=== PATIENT | male | born 1985 | race Caucasian/White ===

== ENCOUNTER 2022-01-29 09:18 | Emergency (ER) | payer MEDICAID, SELFPAY ==
[2022-01-29] VITALS (34 sets, daily range): BP systolic 115–138; BP diastolic 71–100; PULSE 50–92; RESP 8–29; TEMP 36.5; O2SAT 95–99
--- NOTE | 2022-01-29 09:30 | RT.EKG_ITS ---
APPROVED REPORT Exam: Resting ECG Reason for Exam: dizzyness Patient Location: E HR:68 bpm ECG Measurements Heart Rate 68 AXIS MN 146 P 7 QRSd 73 QRS 21 QT 368 T 33 QTc 393 Conclusion Unknown rhythm, irregular rate...V-rate 51- 83, variation>10%
[2022-01-29] MEDS: Normal Saline 1,000 ML 1000 ML IV (10:41)
[2022-01-29 10:46] LABS: Abs Immature Grans 0.01 10^3/uL (0.0-0.06); Absolute Basophil Count 0.04 10^3/uL (0.0-0.2); Absolute Eosinophil Count 0.01 10^3/uL (0.0-0.7); Absolute Lymphocyte Count 1.31 10^3/uL (1.2-3.4); Absolute Monocyte Count 0.97 10^3/uL (0.1-0.8); Basophils % 0.6; Eosinophils % 0.1; HCT 44.1 % (40.0-50.0); HGB 14.7 g/dL (13.5-17.5); Immature Grans % 0.1; Lymphocytes % 18.3; MCH 29.9 pg (27.0-33.0); MCHC 33.3 % (32.0-36.0); MCV 90 fL (80-95); MPV 10.1 fL (8.0-11.0); Monocytes % 13.6; Neutrophils % 67.3; Platelet Count 255 10^3/uL (130-400); RBC 4.92 10^6/uL (4.36-5.78); RDW 12.6 % (11.8-14.1); RDW-SD 41.4 fL; WBC 7.14 10^3/uL (4.4-10.8)
[2022-01-29 11:17] LABS: ALT 30 U/L (16-63); AST 35 U/L (15-37); Albumin 3.7 g/dL (3.4-5.0); Alkaline Phosphatase 130 U/L (46-116); Anion Gap 6.1 mmol/L (3-11); BUN 12 mg/dL (7-18); Bilirubin, Total 0.2 mg/dL (0.2-1.0); CO2 28.9 mmol/L (21.0-32.0); CREATININE 1.1 mg/dL (0.70-1.30); Calcium 8.8 mg/dL (8.5-10.1); Chloride 101 mmol/L (98-107); Estimated GFR 88.12 (mL/min/1.73m2); Glucose 92 mg/dL (74-106); Magnesium 1.9 mg/dL (1.8-2.4); Potassium 3.9 mmol/L (3.5-5.1); Sodium 136 mmol/L (136-145); TSH (W/Ref FT4) 0.79 uIU/mL (0.36-3.74); Total Protein 7.6 g/dL (6.4-8.2); Troponin I < 50 ng/L (<or=60)
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
--- NOTE | 2022-01-29 12:59 | NUR.NOTE ---
Nursing Note:REPEAT LABS DRAWN, PT DENIES PAIN OR COMPLAINTS AT THIS TIME, CONT. TO MONITOR.
--- NOTE | 2022-01-29 13:14 | NUR.NOTE ---
Nursing Note: RT UNABLE TO DO HOLTER MONITOR AT THIS TIME, PT AWARE OF NEED TO RETURN FOR HOLTER MONITOR OUTPT, PROVIDER AWARE.
[2022-01-29 13:17] LABS: Troponin I < 50 ng/L (<or=60)
--- NOTE | 2022-01-29 13:21 | NUR.NOTE ---
Nursing Note: pT DISCHARGED, WILL RETURN WHEN NOTIFIED OF AVAILABILITY FOR HOLTER MONITOR APPLICATION OUTPT, PROVIDER AWARE.
[2022-01-31 21:16] LABS: Anaplasma phagocytophilum Negative (Negative); B. miyamotoi PCR Negative (Negative); Babesia divergens/MO-1 Negative (Negative); Babesia duncani Negative (Negative); Babesia microti Negative (Negative); Ehrlichia chaffeensis Negative (Negative); Ehrlichia ewingii/canis Negative (Negative); Ehrlichia muris eauclairensis Negative (Negative)
[2022-02-01 11:29] LABS: Lyme Ab w Rflx to Lyme Confirm Negative (Negative)
--- NOTE | 2022-02-01 11:30 | CMACTNOTE_ITS ---
- If Service Date Differs Date of service: 01/29/22 Time of Service: 16:00 Care Management Activity Note Abdoul presents in the ED for syncope and episodic lightheadedness. CM meets with Abdoul to inquire if he has a PCP as he is going home with a holter monitor and will require close follow-up. Abdoul reports he did have a doctor in [place] but she left the practice and he has not seen anyone else and does not feel the need to have a doctor at this time. LORELEI explains to him that he will need to be followed on an outpatient basis as he is going home with a holter monitor. Abdoul acknowledges his understanding and instructs CM to refer him to a PCP anywhere. With his verbal permission, LORELEI telephones [facility] in [place]. They confirm Abdoul is a former patient but state he has not been seen in over 2 years and is no longer active. They further state they have a 6 month waitlist and would not be able to schedule an appointment for Abdoul for several months. LORELEI then coordinates a referral to Dr. Gandhi of [facility], t-doc online marketing strategist, to assist Abdoul in obtaining a follow up appointment. He has Medicaid for insurance.
== END 2022-01-29 13:20 | disposition home or self-care (01) ==
PROVIDERS: Emergency Provider Student in an Organized Health Care Education/Training Program
DX: R55 Syncope and collapse (principal); R42 Dizziness and giddiness; I49.8 Other specified cardiac arrhythmias; F17.210 Nicotine dependence, cigarettes, uncomplicated
CPT/HCPCS: 36415; 80053; 87798; 93005; 96360; 99284; 83735; 84443; 84484; 85025; 86618; 93010; 93225

== ENCOUNTER 2022-01-31 13:42 | Observation (INO) | payer MEDICAID, SELFPAY ==
[2022-01-31] VITALS (16 sets, daily range): BP systolic 115–130; BP diastolic 78–87; PULSE 66–82; RESP 9–22; TEMP 36.1–37.6; O2SAT 95–97
--- NOTE | 2022-01-31 13:45 | RT.EKG_ITS ---
APPROVED REPORT Exam: Resting ECG Reason for Exam: chest pain Patient Location: E HR:77 bpm ECG Measurements Heart Rate 77 AXIS MA 157 P 14 QRSd 69 QRS 26 QT 363 T 33 QTc 412 Conclusion Sinus rhythm...normal P axis, V-rate 60- 99. Sinus. Normal axis. No STEMI. I have reviewed and interpreted ECG and agree with software generated interpretation.
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
[2022-01-31 14:29] LABS: Abs Immature Grans 0.02 10^3/uL (0.0-0.06); Absolute Basophil Count 0.02 10^3/uL (0.0-0.2); Absolute Lymphocyte Count 0.56 10^3/uL (1.2-3.4); Absolute Monocyte Count 0.54 10^3/uL (0.1-0.8); Absolute Neutrophil Count 7.24 10^3/uL (1.2-6.7); Basophils % 0.2; HCT 42.3 % (40.0-50.0); HGB 14.4 g/dL (13.5-17.5); Immature Grans % 0.2; Lymphocytes % 6.7; MCH 30.1 pg (27.0-33.0); MCV 89 fL (80-95); MPV 9.5 fL (8.0-11.0); Monocytes % 6.4; Neutrophils % 86.5; Platelet Count 239 10^3/uL (130-400); RBC 4.78 10^6/uL (4.36-5.78); RDW 12.2 % (11.8-14.1); RDW-SD 39.7 fL; WBC 8.38 10^3/uL (4.4-10.8)
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
[2022-01-31] MEDS: Omnipaque 350 MG/ML 100 ML BTL IV (14:40)
[2022-01-31] MEDS: Normal Saline Flush 10 ML SYR IVP ×2 (14:42→20:34)
[2022-01-31] MEDS: Bacitracin 1 PACKET (14:43)
[2022-01-31] MEDS: Normal Saline 1,000 ML 1000 ML IV (14:44)
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
[2022-01-31 14:57] LABS: ALT 66 U/L (16-63); AST 92 U/L (15-37); Albumin 3.6 g/dL (3.4-5.0); Alkaline Phosphatase 139 U/L (46-116); BUN 14 mg/dL (7-18); Bilirubin, Total 0.6 mg/dL (0.2-1.0); CREATININE 1.1 mg/dL (0.70-1.30); Calcium 9.2 mg/dL (8.5-10.1); Chloride 95 mmol/L (98-107); Estimated GFR 88.12 (mL/min/1.73m2); Glucose 115 mg/dL (74-106); Magnesium 1.5 mg/dL (1.8-2.4); Potassium 3.5 mmol/L (3.5-5.1); Sodium 130 mmol/L (136-145); Total Protein 7.5 g/dL (6.4-8.2); Troponin I < 50 ng/L (<or=60)
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
[2022-01-31] MEDS: oxyCODONE 5 MG TAB PO (16:35)
[2022-01-31] MEDS: MAGNESIUM SULFATE 1 GM/100 ML BAG IVPB (16:38)
[2022-01-31 17:16] LABS: Source Nasal/Nares
--- OUTSIDE RECORDS SUMMARY | 2022-01-31 17:41 | XMS_ITS | Encounter Summary ---
:1985 Demographics Home Phone Preferred Language Unknown Marital Status Unknown Quaker Affiliation Unknown Race Unknown Ethnic Group Unknown Author Organization [facility] Address [address] [place] [address] Care Team Providers Name Role Phone Unavailable Primary Care Provider Unavailable Encounter Details Date Type Department Care Team Description 01/29/2022 Lab Requisition [facility] Outr Resulting Lab, Pathology & Laboratory Provider [facility] [address] [place] [address] Social History Tobacco Use Types Packs/Day Years Used Date Never Assessed Sex Assigned at Date Recorded Not on file documented as of this encounter Plan of Treatment Pending Results Name Type Priority Associated Diagnoses Date/Ti me LYME AB Lab Routine 01/29/2022 9:48 EDT documented as of this encounter Visit Diagnoses Not on filedocumented in this encounter
[2022-01-31 17:43] LABS: COVID-19 PCR POSITIVE (Negative)
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
[2022-01-31] MEDS: Enoxaparin 40 MG/0.4 ML SYR SC (20:33)
[2022-01-31] MEDS: Ketorolac 15 MG/ML VIAL IVP (20:34)
[2022-02-01] MEDS: Ketorolac 15 MG/ML VIAL IVP (03:04)
[2022-02-01] MEDS: Normal Saline Flush 10 ML SYR IVP (03:05)
[2022-02-01 03:07] VITALS: BP 115/77; BP 116/78; BP 120/88; PULSE 75; PULSE 78; PULSE 80; RESP 16; TEMP 36.6; O2SAT 95
[2022-02-01 06:26] LABS: Abs Immature Grans 0.02 10^3/uL (0.0-0.06); Absolute Basophil Count 0.01 10^3/uL (0.0-0.2); Absolute Eosinophil Count 0.04 10^3/uL (0.0-0.7); Absolute Lymphocyte Count 1.37 10^3/uL (1.2-3.4); Absolute Monocyte Count 0.46 10^3/uL (0.1-0.8); Absolute Neutrophil Count 3.87 10^3/uL (1.2-6.7); Basophils % 0.2; Eosinophils % 0.7; HCT 40.8 % (40.0-50.0); HGB 13.8 g/dL (13.5-17.5); Immature Grans % 0.3; Lymphocytes % 23.7; MCH 30.2 pg (27.0-33.0); MCHC 33.8 % (32.0-36.0); MCV 89 fL (80-95); MPV 9.3 fL (8.0-11.0); Neutrophils % 67.1; Platelet Count 196 10^3/uL (130-400); RBC 4.57 10^6/uL (4.36-5.78); RDW 12.4 % (11.8-14.1); WBC 5.77 10^3/uL (4.4-10.8)
[2022-02-01 06:47] LABS: ALT 51 U/L (16-63); AST 57 U/L (15-37); Alkaline Phosphatase 120 U/L (46-116); Anion Gap 9.8 mmol/L (3-11); BUN 13 mg/dL (7-18); Bilirubin, Total 0.5 mg/dL (0.2-1.0); CO2 26.2 mmol/L (21.0-32.0); CREATININE 0.9 mg/dL (0.70-1.30); Calcium 8.4 mg/dL (8.5-10.1); Chloride 102 mmol/L (98-107); Estimated GFR 112.11 (mL/min/1.73m2); Glucose 112 mg/dL (74-106); Magnesium 2.1 mg/dL (1.8-2.4); Potassium 3.4 mmol/L (3.5-5.1); Sodium 138 mmol/L (136-145); Total Protein 6.7 g/dL (6.4-8.2)
[2022-02-01 07:00] VITALS: PULSE 59
--- NOTE | 2022-02-01 08:00 | DI.US_ITS ---
APPROVED REPORT EXAM: Comprehensive 2D, Doppler, and color-flow Echocardiogram Patient Location: In-Patient Room/Bed: [address] Polisher: Robyn Baptiste RDCS (AE) Indications: Syncope, COVID Other Information Study Quality: Fair. Technically limited study due to body habitus, inability to position patient exa m done supine bedside. Conclusion Normal left ventricular wall thickness and chamber size. Estimated ejection fraction is 60%. There are no segmental wall motion abnormalities Normal right ventricular size and systolic function Both atria are normal in size There is no structural or hemodynamically significant valvular disease Estimated right ventricular systolic pressure is 21 mmHg Wall motion Left Ventricle The left ventricle is normal size. The left ventricular systolic function is normal. The left ventric ular ejection fraction is within the normal range. There is normal left ventricular wall thickness. T here is normal LV segmental wall motion. There is no ventricular septal defect visualized. LVEF is 60 %. Right Ventricle The right ventricle is normal size. The right ventricular systolic function is normal. The RVSP is 21 .2mmHg. Atria The left atrium size is normal. The right atrium size is normal. The interatrial septum is intact wit h no evidence for an atrial septal defect. Aortic Valve The aortic valve is normal in structure. Aortic valve is trileaflet. There is no aortic valvular sten osis. No aortic regurgitation is present. Mitral Valve The mitral valve is normal in structure. No evidence of mitral valve stenosis. Trace mitral regurgita tion. Tricuspid Valve The tricuspid valve is normal in structure. There is no tricuspid valve stenosis. Trace tricuspid reg urgitation. Pulmonic Valve Pulmonic valve is not well visualized. There is no pulmonic valvular stenosis. There is no pulmonic v alvular regurgitation. Great Vessels The aortic root is normal in size. Ascending aorta is not well visualized. Aortic arch is normal in c aliber. IVC is normal in size and collapses >50% with inspiration. Pericardium There is no pericardial effusion. 2D Dimensions IVSD d PLAX 0.78 cm M: 0.6-1.2 LV Vol A2C d MOD 101.6 mL LVPW d PLAX 0.78 cm M: 0.6 - 1.2 LV Vol A4C d MOD 118.5 mL LVID d PLAX 4.40 cm M: 4.2 - 5.8 LA vol/ BSA A2C s A-L 10.3 mL/m2 LVDs 2.95 cm M: 2.5 - 4.0 LA vol/ BSA A4C s A-L 11.4 mL/m2 Ao Root d 3.48 cm M: 3.1 - 3.7 LA Vol/ BSA Biplane s A-L 12.7 mL/m2 RA Area A4C 11.19 cm2 LA Area A4C s MOD 11.05 cm2 RA Vol/ BSA A4C s A-L 11.5 mL/m2 LA Area A2C s MOD 8.99 cm2 LV EF Teichholz 61.0 % LV EF A4C MOD 60.6 % LVEF (Swann's) 59.21 % M: 52 - 72 LV EF A2C MOD 60.2 % LV Volume 81.23 mL M: 62 - 150 LV EF Biplane MOD 59.2 % LV Volume Index 39.24 mL/m2 M: 34 - 74 SV 64.93 mL LV Vol Biplane MOD 109.7 mL SV Index 31.26 mL/m2 FS 32.45 % M-Mode TAPSE 2.08 cm (M/F) >1.7 LV Diastology MV E' medial 0.131 (>0.07 m/s) E/A Ratio 1.4 LV E/e MED 4.80 (<14) MV E Vmax 0.63 (0.4-1.3 m/s) MV E' lateral 0.158 (>0.1 m/s) MV A Vmax 0.45 (0.4-1.3 m/s) LV E/e LAT 3.95 (<14) MV E/A Ratio 1.39 MV E/E' medial 4.83 MV E/E' lateral 4.00 Aortic Valve LVOT Area 2.86 cm2 AoV Area Vmax 2.57 cm2 LVOT Vmax 0.94 m/s AoV Area/ BSA (Vmax) 1.24 cm2/m2 LVOT Mean Tucker. 0.62 m/s ELIZABETH Mean Tucker. 2.48 cm2 LVOT Peak Grad 3.5 mmHg ELIZABETH Mean Tucker. Index 1.19 cm2/m2 LVOT Mean Grad 1.8 mmHg LVOT VTI 0.186 m LVOT Diam s 1.90 cm AoV Vmax 1.04 m/s Velocity Ratio 0.90 AoV Mean Tucker. 0.72 m/s AoV Peak Grad 4.4 mmHg LVOT SV 53.20 mL AoV Mean Grad 2.4 mmHg AoV VTI 0.190 m AoV Area VTI 2.81 cm2 AoV Area/ BSA (VTI) 1.35 cm/m2 Mitral Valve MV DT 193 (160-240 msec) MV PHT 56 msec MV Area PHT 3.94 cm2 MV VTI 0.313 m MV Area VTI 1.70 (4.0-6.0 cm2) Pulmonary Valve PV Vmax 0.95 (0.5-1.5 m/s) RVOT Peak Gr. 1.10 mmHg PV Peak Grad 3.6 mmHg RVOT Mean Gr. 0.50 mmHg PV Mean Grad 2.4 mmHg RVOT VTI 0.094 m PV VTI 0.199 m RVOT Vmax 0.52 m/s Tricuspid Valve TR Peak Grad 18.1 mmHg TR Vmax 2.13 m/s RA Pressure 3.00 mmHg RVSP (TR) 21.2 mmHg
[2022-02-01 08:11] VITALS: BP 122/81; PULSE 80; RESP 18; TEMP 36.4; O2SAT 94
--- NOTE | 2022-02-01 08:58 | NUR.NOTE ---
Nursing Note: Accessed pt chart for information for [facility]
[2022-02-01] MEDS: Potassium Chloride 10 MEQ CAPCR 40 MEQ PO (09:12)
[2022-02-01 15:35] VITALS: PULSE 79
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
--- NOTE | 2022-02-01 16:55 | PDOC.CMDIS ---
- If Service Date Differs Date of service: 02/01/22 Time of Service: 16:55 LACE Index Scoring Tool - Questions: Length of Stay (in days): 1 Acuity (Admit via E.D.?): Yes E.D. Visits: 2 - Answers: Total Score: 6 Risk of Readmission: Low Risk Care Management Discharge Reason for Hospitalization: Synope Discharge Plan: Abdoul is discharged home via private vehicle with friend. New RX for IBuprophen is printed. Abdoul will follow up with Dr. Haywood on 03/15/22, as scheduled. Cardiac event recorder is ordered on discharge and a MRI is ordered for 1 week. Pt will call diagnostic imaging to schedule. Abdoul is encouraged to follow discharge plan of care as prescribed and follow up with community providers. Patient/Family Education Needs: Review discharge instructions, limitations, medications and plan to follow up with community providers. Review ask me three.
== END 2022-02-01 16:09 | disposition home or self-care (01) ==
LOC: ER 16:50 → MS 17:40
PROVIDERS: Registered Nurse Emergency; Admitting Provider Internal Medicine; Emergency Provider Physician Assistant; Visit Provider Internal Medicine
DX: R55 Syncope and collapse (principal); U07.1 COVID-19; R00.2 Palpitations; R07.89 Other chest pain; E87.1 Hypo-osmolality and hyponatremia; E83.42 Hypomagnesemia; F12.90 Cannabis use, unspecified, uncomplicated; H53.8 Other visual disturbances; F17.210 Nicotine dependence, cigarettes, uncomplicated; S60.512A Abrasion of left hand, initial encounter; S60.511A Abrasion of right hand, initial encounter; S90.01XA Contusion of right ankle, initial encounter; V29.88XA Motorcycle rider (driver) (passenger) injured in other specified transport accidents, initial encounter
CPT/HCPCS: 36415; 74177; 80053; 87635; 90471; 93005; 96361; 96365; 96372; 96374; 99285; J1650; 70450; 71260; 72125; 73130; 73610; 83735; 84484; 85025; 93010; 93306; 99217; 99219; G0378; J1885; J3475; J3490

== ENCOUNTER 2022-08-19 09:47 | Emergency (ER) | payer MEDICAID, SELFPAY ==
[2022-08-19] VITALS (27 sets, daily range): BP systolic 33–132; BP diastolic 12–84; PULSE 0–152; RESP 0–62; TEMP 36.2; O2SAT 97–100
--- NOTE | 2022-08-19 09:30 | RT.EKG_ITS ---
APPROVED REPORT Exam: Resting ECG Reason for Exam: unresponsive Patient Location: E HR:38 bpm ECG Measurements Heart Rate [address] [id number] P [id number] QRSd 118 QRS 66 QT 551 T 24 QTc 443 Conclusion Junctional rhythm...absent P waves, slow V-rate Nonspecific intraventricular conduction delay...QRSd >115mS, not LBBB/RBBB Low voltage, extremity and precordial leads...extremity<0.5mV, precordial<1.0mV Borderline ST depression, diffuse leads...ST <-0.07mV, ant/lat/inf. I have reviewed and interpreted ECG and agree with software generated interpretation.
--- NOTE | 2022-08-19 09:30 | DI.RAD_ITS ---
Exam(s) XR PORTABLE CHEST AP EXAM: XR PORTABLE CHEST AP CLINICAL HISTORY: confirm placement of ETT. TECHNIQUE: 2D digital imaging was performed. COMPARISON: CR CHEST 2 VIEWS PA,LAT from 07/22/2010 FINDINGS: Single AP portable view. Patient is intubated. Distal tip of the endotracheal tube is 5.5 cm above the eric. Heart size is upper normal. The mediastinum is not widened. Lungs are clear. No infiltrates nor obvious pleural effusions. No pneumothorax. No fractures. However, of the right AC joint is widened. No clavicle fracture. IMPRESSION: ET tube position as above.Lungs are clear at this time. Widened right AC joint. Left AC joint unremarkable. DATA REPOSITORY: RADIATION DOSE DELIVERED:
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
[2022-08-19] MEDS: Lactated Ringers 1,000 ML 1000 ML IV (09:58)
--- NOTE | 2022-08-19 10:00 | NUR.NOTE ---
Nursing Note: Upon arrival into pt room. Brief report received from Margarita Leon RN. Care assumed at this time
[2022-08-19] MEDS: Sodium Bicarbonate 50 MEQ/50 ML SYR IVP (10:03)
[2022-08-19 10:05] LABS: Abs Immature Grans 1.01 10^3/uL (0.0-0.06); HCT 46.7 % (40.0-50.0); HGB 14.2 g/dL (13.5-17.5); MCH 30.9 pg (27.0-33.0); MCHC 30.4 % (32.0-36.0); MCV 102 fL (80-95); MPV 9.7 fL (8.0-11.0); RBC 4.59 10^6/uL (4.36-5.78); RDW 12.2 % (11.8-14.1); RDW-SD 45.8 fL; WBC 11.45 10^3/uL (4.4-10.8)
[2022-08-19] MEDS: Calcium Gluconate 4.65 MEQ/10 ML VIAL 4.65 MG IVP (10:06)
[2022-08-19 10:08] LABS: Lactate 13.8 mmol/L (0.6-1.4)
[2022-08-19 10:22] LABS: INR 1.3 (0.9-1.1); PTT Activated 35.4 sec (21.5-31.9); Prothrombin Time 13.3 sec (9.3-11.0)
--- OUTSIDE RECORDS SUMMARY | 2022-08-19 10:27 | XMS_ITS | Continuity of Care Document ---
Author Name Unknown Organization [facility] Address [address] [place] [address] Encounter LTTL_KS FIN NBR [id number] Date(s): 07/25/22 - 07/25/22 [facility] [address] [place], [place] [address] Encounter Diagnosis Viral syndrome(Discharge Diagnosis) - 07/25/22 Discharge Disposition: Home or Self Care Attending Physician: Yuri Osborn MD Admitting Physician: Yuri Osborn MD Allergies, Adverse Reactions, Alerts No Known Medication Allergies Assessment and Plan Diagnostic Tests Pending * SARS-CoV-2 (Covid-19) AG (Nabila) POCT 07/25/22 Medications No Known Medications Results Laboratory List Name Date C-Reactive Protein 07/25/22 Comprehensive Metabolic Panel (CMP) 07/25 Magnesium Level 07/25/22 TSH w/ Rflx to Free T4 07/25/22 CBC w/ Diff 07/25/22 Automated Diff 07/25/22 SARS-CoV-2 (Covid-19) AG (Nabila) POCT 05/07 Most recent to oldest [Reference Range]: 1 WBC [4.8-10.8 K/mcL] 8.8 K/mcL (07/25/22 11:19 AM) RBC [4.20-6.10 Million/mcL] 5.00 Million /mcL (07/25/22 11:19 AM) Neutro Auto [42.2-75.2 %] 75.8 % *HI* (07/25/22 11:19 AM) Lymph Auto [20.5-51.1 %] 12.9 % *LOW* (07/25/22 11:19 AM) Boundary Auto [1.7-9.3 %] 10.3 % *HI* (07/25/22 11:19 AM) Basophil Auto [0.0-0.8 %] 0.5 % (07/25/22: AM) BUN [8-26 mg/dL] 8 mg/dL (07/25/22 AM) Glucose Level [74-106 mg/dL] 95 mg/dL (07/25/22 AM) Potassium Level [3.5-5.1 mmol/L] 3.7 mmo l/L (07/25/22 AM) Baso Absolute [0.0-0.2 K/mcL] 0.0 K/mcL (07/25/22 AM) MCV [80.0-94.0 fL] 90.4 fL (07/25/22 AM) CRP [0.0-9.9] 87.6 *HI* (07/25/22 AM) AST [15-41 IntlUnit/L] 29 IntlUnit/L (07/25/22 AM) ALT [17-63 IntlUnit/L] 22 IntlUnit/L (07/25/22 AM) MCHC [32.0-36.0 g/dL] 34.5 g/dL (07/25/22 AM) Osmolality [275-295 mOsm/kg] 261 mOsm/kg *LOW* (07/25/22 AM) Sodium Level [134-143 mmol/L] 131 mmol/L *LOW* (07/25/22 AM) Lymph Absolute [1.2-3.4 K/mcL] 1.1 K/mcL *LOW* (07/25/22 AM) Hct [42.0-52.0 %] 45.2 % (07/25/22 AM) Calcium Level [8.9-10.3 mg/dL] 8.5 mg/dL *LOW* (07/25/22 AM) Boundary Absolute [0.1-0.6 K/mcL] 0.9 K/mcL *HI* (07/25/22: AM) Albumin Level [3.5-5.0 g/dL] 3.5 g/dL (07/25/2243 AM) Protein Total [6.5-8.1 g/dL] 7.6 g/dL (07/25/22:43 AM) MCH [27.0-31.0 pg] 31.2 pg *HI* (07/25/22 AM) Magnesium Level [1.8-2.5 mg/dL] 1.7 mg/d L *LOW* (07/25/22 AM) Neutro Absolute [1.4-6.5 K/mcL] 6.7 K/mc L *HI* (07/25/22: AM) Bilirubin Total [0.2-1.2 mg/dL] 0.6 mg/d L (07/25/2243 AM) Hgb [14.0-18.0 g/dL] 15.6 g/dL (07/25/22 AM) Alk Phos [38-130 IntlUnit/L] 134 IntlUni t/L *HI* (07/25/22 AM) MPV [7.4-10.4 fL] 9.5 fL (07/25/22: AM) Platelets [130-400 K/mcL] 262 K/mcL (07/25/22: AM) CO2 [22-32 mmol/L] 22 mmol/L (07/25/22: AM) Eos Absolute [0.0-0.2 K/mcL] 0.0 K/mcL (07/25/22: AM) TSH [0.45-5.33 mIntlUnit/mL] 1.45 mIntlU nit/mL (07/25/22:43 AM) Chloride Level [98-111 mmol/L] 96 mmol/L *LOW* (07/25/22: AM) RDW-CV [11.5-14.5 %] 12.4 % (07/25/22 AM) A/G Ratio 0.9 *NA* (07/25/22: AM) BUN/Creat Ratio [8.0-20.0] 11.3 (07/25/22:43 AM) Globulin 4.1 *NA* (07/25/22:43 AM) Imm Gran Absolute 0.02 *NA* (3/12/23 11:19 AM) Imm Gran Auto [0.0-0.5 %] 0.2 % (07/25/22 11:19 AM) Creatinine Level [0.61-1.24 mg/dL] 0.71 mg/dL (07/25/22 11:43 AM) SARS-CoV or CoV-2 (COVID-19) Ag (Nabila) [Negative] Negative (07/25/22 10:33 AM) Employed in healthcare? Unknown *NA* (07/25/22 10:33 AM) Symptomatic as defined by CDC? Unknown *NA* (07/25/22 10:33 AM) Date of onset (Lab) Unknown *NA* (07/25/22 10:33 AM) Hospitalized due to COVID-19? Unknown *NA* (07/25/22 10:33 AM) In ICU? Unknown *NA* (07/25/22 10:33 AM) Group care resident? Unknown *NA* (07/25/22 10:33 AM) status? Unknown *NA* (07/25/22 10:33 AM) Anion Gap [3.0-12.0] 13.0 *HI* (07/25/22 11:43 AM) Eos, Auto [0.00-3.00 %] 0.30 % (07/25/22 11:19 AM) eGFR CKD-EPI [>=60 mL/min/1.73 m2] 120 m L/min/1.73 m2 (07/25/22 11:43 AM) Vital Signs Most recent to oldest [Reference Range]: 1 Temperature Temporal Artery [36-38 Deg C ] 36 Deg C (07/25/22 10:55 AM) Peripheral Pulse Rate [60-100 bpm] 97 bp m (07/25/22 10:55 AM) Respiratory Rate [12-24 br/min] 14 br/mi n (07/25/22 10:55 AM) Blood Pressure [90-140/60-90 mmHg] 164/1 03mmHg *HI* (07/25/22 10:55 AM) Weight Dosing 82.00 kg (07/25/22 11:05 AM) Weight Estimated 82.00 kg (07/25/22 10:55 AM) Height/Length Dosing 170.000 cm (07/25/22 11:05 AM) Height/Length Estimated 170.000 cm (07/25/22 10:55 AM) Social History Social History Type Response Tobacco Never tobacco user T obacco Use:. Sex Hospital Discharge Instructions Patient Education 07/25/2022 12:02:48 Viral Illness, Adult Viral Illness, Adult Viruses are tiny germs that can get into a person's body and cause illness. There are many different types of viruses, and they cause many types of illness. Viral illnesses can range from mild to severe. They can affect various parts of the body. Short-term conditions that are caused by a virus include colds and the flu (influenza). Long-term conditions that are caused by a virus include herpes, shingles, and HIV (human immunodeficiency virus) infection. A few viruses have been linked to certain cancers. What are the causes? Many types of viruses can cause illness. Viruses invade cells in your body, multiply, and cause theinfected cells to work abnormally or . When these cells , they release more of the virus. When this happens, you develop symptoms of the illness, and the virus continues to spread to other cells. If the virus takes over the function of the cell, it can cause the cell to divide and grow out ofcontrol. This happens when a virus causes cancer. Different viruses get into the body in different ways. You can get a virus by: ??? Swallowing food or water that has come in contact with the virus (is contaminated). ??? Breathing in droplets that have been coughed or sneezed into the air by an infected person. ??? Touching a surface that has been contaminated with the virus and then touching your eyes, nose,or mouth. ??? Being bitten by an insect or animal that carries the virus. ??? Having sexual contact with a person who is infected with the virus. ??? Being exposed to blood or fluids that contain the virus, either through an open cut or during atransfusion. If a virus enters your body, your body's defense system (immune system) will try to fight the virus. You may be at higher risk for a viral illness if your immune system is weak. What are the signs or symptoms? You may have these symptoms, depending on the type of virus and the location of the cells that it invades: ??? Cold and flu viruses: ??? Fever. ??? Headache. ??? Sore throat. ??? Muscle aches. ??? Stuffy nose (nasal congestion). ??? Cough. ??? Digestive system (gastrointestinal) viruses: ??? Fever. ??? Pain in the abdomen. ??? Nausea. ??? Diarrhea. ??? Liver viruses (hepatitis): ??? Loss of appetite. ??? Tiredness. ??? Skin or the white parts of your eyes turning yellow (jaundice). ??? Brain and spinal cord viruses: ??? Fever. ??? Headache. ??? Stiff neck. ??? Nausea and vomiting. ??? Confusion or sleepiness. ??? Skin viruses: ??? Warts. ??? Itching. ??? Rash. ??? Sexually transmitted viruses: ??? Discharge. ??? Swelling. ??? Redness. ??? Rash. How is this diagnosed? This condition may be diagnosed based on one or more of the following: ??? Symptoms. ??? Medical history. ??? Physical exam. ??? Blood test, sample of mucus from your lungs (sputum sample), stool sample, or a swab of body fluids or a skin sore (lesion). How is this treated? Viruses can be hard to treat because they live within cells. Antibiotic medicines do not treat viruses because these medicines do not get inside cells. Treatment for a viral illness may include: ??? Resting and drinking plenty of fluids. ??? Medicines to relieve symptoms. These can include [id number] medicine for pain and fever, medicines for cough or congestion, and medicines to relieve diarrhea. ??? Antiviral medicines. These medicines are available only for certain types of viruses. Some viral illnesses can be prevented with vaccinations. A common example is the flu shot. Follow these instructions at home: Medicines ??? Take juvj-wia-jxeqyaf and prescription medicines only as told by your health care provider. ??? If you were prescribed an antiviral medicine, take it as told by your health care provider. Do not stop taking the antiviral even if you start to feel better. ??? Be aware of when antibiotics are needed and when they are not needed. Antibiotics do not treat viruses. You may get an antibiotic if your health care provider thinks that you may have, or are at risk for, a bacterial infection and you have a viral infection. ??? Do not ask for an antibiotic prescription if you have been diagnosed with a viral illness. Antibiotics will not make your illness go away faster. ??? Frequently taking antibiotics when they are not needed can lead to antibiotic resistance. When this develops, the medicine no longer works against the bacteria that it normally fights. General instructions ??? Drink enough fluids to keep your urine pale yellow. ??? Rest as much as possible. ??? Return to your normal activities as told by your health care provider. Ask your health care provider what activities are safe for you. ??? Keep all follow-up visits as told by your health care provider. This is important. How is this prevented? To reduce your risk of viral illness: ??? Wash your hands often with soap and water for at least 20 seconds. If soap and water are not available, use hand ground crew lines person. ??? Avoid touching your nose, eyes, and mouth, especially if you have not washed your hands recently. ??? If anyone in your household has a viral infection, clean all household surfaces that may have been in contact with the virus. Use soap and hot water. You may also use bleach that you have added water to (diluted). ??? Stay away from people who are sick with symptoms of a viral infection. ??? Do not share items such as toothbrushes and water bottles with other people. ??? Keep your vaccinations up to date. This includes getting a yearly flu shot. ??? Eat a healthy diet and get plenty of rest. Contact a health care provider if: ??? You have symptoms of a viral illness that do not go away. ??? Your symptoms come back after going away. ??? Your symptoms get worse. Get help right away if you have: ??? Trouble breathing. ??? A severe headache or a stiff neck. ??? Severe vomiting or pain in your abdomen. These symptoms may represent a serious problem that is an emergency. Do not wait to see if the symptoms will go away. Get medical help right away. Call your local emergency services (911 in the [place] Do not drive yourself to the hospital. Summary ??? Viruses are types of germs that can get into a person's body and cause illness. Viral illnessescan range from mild to severe. They can affect various parts of the body. ??? Viruses can be hard to treat. There are medicines to relieve symptoms, and there are some antiviral medicines. ??? If you were prescribed an antiviral medicine, take it as told by your health care provider. Do not stop taking the antiviral even if you start to feel better. ??? Contact a health care provider if you have symptoms of a viral illness that do not go away. This information is not intended to replace advice given to you by your health care provider. Make sure you discuss any questions you have with your health care provider. Document Revised: 09/15/2020 Document Reviewed: 03/11/2020 [employer] Patient Education ?? 2021 [employer]. Follow Up Care 07/25/2022 10:55:11 With:Tylenol/Motrin for Pain/Fever Relief Address: When: Unknown Comments:Utilize Motrin 400-600 mg??every 6-8 hours as needed discomfort, Tylenol 1000 mg every 8 hours??as needed With:Follow-up with your primary care Address: When:1 week Comments:Follow-up with your primary care as needed, they will be able to reevaluate if necessaryReturn to ED if concerns Physician Emergency department Note * ZANE Fairbanks: PERFORM Event Display: ED Note Physician Authored Date: [id number] BRIDGETTE BEARD :1985 Age:37 years Sex:Male Visit Date:07/25/2022 Basic Information Time Seen: ZANE Fairbanks / 07/25/2022 10:57 Chief Complaint Pt C/O weakness, muscle cramps, dehydration, feels foggy since yesterday. States he has been 'go [place]' for a month and it's finally catching up to him. History Of Present Illness: Patient 29-year-old male presents emergency department feeling weak and??experiencing muscle crampsovernight. ??He notes that yesterday he was at the water park [place]??and??imbibed in a fair amount of alcohol.?? He notes he has had no other illnesses He does have at this time a??child within his household who is experiencing a viral illness??and henoted that on the way home yesterday he began to feel poorly. ??He woke this morning and had??significant concerns and therefore he comes to the emergency department for evaluation. ??Patient feels as though he is dehydrated??and??would like to be evaluated. ??He has had no fevers nausea vomiting??has had minimal oral intake due to the fact that he just has no appetite??has had no difficulties with urination or bowel movements and otherwise??feels well. Review of Systems: See HPI for details Physical Exam Vitals & Measurements T:??36?C ??(Temporal Artery)?? HR:??97??(Peripheral)?? RR:??14?? BP:??164/103?? SpO2:??97%?? HT:??170.000??cm?? WT:??82.00??kg??(Estimated)?? O2 Therapy:??Room air?? Patient alert oriented age-appropriate nontoxic Neck is supple nontender full range of motion EOM intact, PERRL, sclera anicteric?? clear to auscultation Regular rate and rhythm No CVA tenderness Abdomen soft nontender Skin is warm and dry Medical Decision Making: Laboratory evaluation??reveals low lymphocytes,??normal white count??normal, elevated CRP I believe this to be consistent with a viral syndrome His otherwise his electrolytes are within normal limits??he is given 2 L of fluids here in the emergency department feels significantly better. I have discussed with him his elevation and he will follow-up with his primary care He will be discharged as below Procedure No Qualifying Data Assessment/Plan 1.??Viral syndrome??B34.9 Patient will be discharged she is to remain hydrated, limit his alcohol intake and??monitor symptoms.?? He will return for any new or worsening symptoms??otherwise follow with his primary care for any further work-up He agrees with discharge Orders: Sodium Chloride 0.9% 1,000 mL, Total Volume (mL): 1,000, 1,000 mL, Soln-IV, IV Bolus, 999 mL/hr, Order Duration: 1 times, Start Date: 07/25/22 12:18:00 EDT, Stop Date: 07/25/22 13:17:00 EDT, 82 kg, Populate Charting Weight From Order, 1.97, m2 Sodium Chloride 0.9% 1,000 mL, Total Volume (mL): 1,000, 1,000 mL, Soln-IV, IV Bolus, 999 mL/hr, Order Duration: 1 times, Start Date: 07/25/22 11:12:00 EDT, Stop Date: 07/25/22 12:11:00 EDT, 82 kg, Populate Charting Weight From Order Discharge Patient, 07/25/22 13:02:00 EDT SARS-CoV-2 (Covid-19) AG (Nabila) POCT, Swab, Routine, RT - Routine, Collected Y/N, Once, Nurse Collect, 07/25/22 11:30:00 EDT Patient Education Viral Illness, Adult Follow Up With When Contact Information Tylenol/Motrin for Pain/Fever Relief Additional Instructions: Utilize Motrin 400-600 mg??every 6-8 hours as needed discomfort, Tylenol 1000 mg every 8 hours??as needed Follow-up with your primary care Within 1 week Additional Instructions: Follow-up with your primary care as needed, they will be able to reevaluate if necessary Return to ED if concerns Problem List/Past Medical History Ongoing No qualifying data Historical No qualifying data Medication Administration Given Sodium Chloride 0.9%, 1000 mL, IV Bolus Sodium Chloride 0.9%, 1000 mL, IV Bolus Allergies No Known Medication Allergies Social History Alcohol Current Electronic Cigarette/Vaping Electronic Cigarette Use: Use, within last 90 days. Substance Use Never Tobacco Never tobacco user Tobacco Use:. Lab Results CBC and Differential?? LATEST RESULTS?? WBC?? 07/25/22 11:19?? 8.8?? RBC?? 07/25/22 11:19?? 5.00?? Hgb?? 07/25/22 11:19?? 15.6?? Hct?? 07/25/22 11:19?? 45.2?? MCV?? 07/25/22 11:19?? 90.4?? MCH?? 07/25/22 11:19?? 31.2 ??High?? MCHC?? 07/25/22 11:19?? 34.5?? RDW-CV?? 07/25/22 11:19?? 12.4?? Platelets?? 07/25/22 11:19?? 262?? MPV?? 07/25/22 11:19?? 9.5?? Neutro Auto?? 07/25/22 11:19?? 75.8 ??High?? Lymph Auto?? 07/25/22 11:19?? 12.9 ??Low?? Boundary Auto?? 07/25/22 11:19?? 10.3 ??High?? Eos, Auto?? 07/25/22 11:19?? 0.30?? Basophil Auto?? 07/25/22 11:19?? 0.5?? Imm Gran Auto?? 07/25/22 11:19?? 0.2?? Neutro Absolute?? 07/25/22 11:19?? 6.7 ??High?? Lymph Absolute?? 07/25/22 11:19?? 1.1 ??Low?? Boundary Absolute?? 07/25/22 11:19?? 0.9 ??High?? Eos Absolute?? 07/25/22 11:19?? 0.0?? Baso Absolute?? 07/25/22 11:19?? 0.0?? Imm Gran Absolute?? 07/25/22 11:19?? 0.02? Routine Chemistry?? LATEST RESULTS?? Sodium Level?? 07/25/22 11:43?? 131 ??Low?? Potassium Level?? 07/25/22 11:43?? 3.7?? Chloride Level?? 07/25/22 11:43?? 96 ??Low?? CO2?? 07/25/22 11:43?? 22?? Alk Phos?? 07/25/22 11:43?? 134 ??High?? AST?? 07/25/22 11:43?? 29?? ALT?? 07/25/22 11:43?? 22?? BUN?? 07/25/22 11:43?? 8?? Glucose Level?? 07/25/22 11:43?? 95?? Creatinine Level?? 07/25/22 11:43?? 0.71?? BUN/Creat Ratio?? 07/25/22 11:43?? 11.3?? Calcium Level?? 07/25/22 11:43?? 8.5 ??Low?? Protein Total?? 07/25/22 11:43?? 7.6?? Albumin Level?? 07/25/22 11:43?? 3.5?? Globulin?? 07/25/22 11:43?? 4.1?? A/G Ratio?? 07/25/22 11:43?? 0.9?? Bilirubin Total?? 07/25/22 11:43?? 0.6?? Anion Gap?? 07/25/22 11:43?? 13.0 ??High?? Magnesium Level?? 07/25/22 11:43?? 1.7 ??Low?? Osmolality?? 07/25/22 11:43?? 261 ??Low?? CRP?? 07/25/22 11:43?? 87.6 ??High?? eGFR CKD-EPI?? 07/25/22 11:43?? 120? Thyroid Studies?? LATEST RESULTS?? TSH?? 07/25/22 11:43?? 1.45? Electronically Signed on 07/25/22 05:01 PM ZANE Fairbanks Emergency department Discharge instructions * ZANE Fairbanks: PERFORM Event Display: ED Discharge Information Authored Date: [id number] BRIDGETTE BEARD :1985 Age:37 years Sex:Male Visit Date:07/25/2022 Discharge Instructions We would like to thank you for allowing us to assist you with your healthcare needs. The following includes patient education materials and information regarding your injury/illness. Diagnosis from Today's Visit Viral syndrome Discharge Vitals Temperature??(Temporal Artery) 96.8 ??F (36 ??C) Heart Rate??(Peripheral) 97 Respiratory Rate?? 14 Blood Pressure?? 164/103?? Height?? 66.93 in (170.000 cm) Weight??(Estimated) 180.81 lb (82.00 kg) Allergies No Known Medication Allergies What to Do Next You Need to Schedule the Following Appointments Follow Up with??Tylenol/Motrin for Pain/Fever Relief Why: Utilize Motrin 400-600 mg??every 6-8 hours as needed discomfort, Tylenol 1000 mg every 8 hours??as needed Follow Up with??Follow-up with your primary care When:??Within 1 week Why: Follow-up with your primary care as needed, they will be able to reevaluate if necessary Return to ED if concerns You were treated today on an emergency basis; it may be khanna to contact your primary care provider to notify them of your visit today. You may have been referred to your regular doctor or a specialist, please follow up as instructed. If your condition worsens or you can't get in to see the doctor, contact the Emergency Department. Education Materials Viral Illness, Adult Viruses are tiny germs that can get into a person's body and cause illness. There are many different types of viruses, and they cause many types of illness. Viral illnesses can range from mild to severe. They can affect various parts of the body. Short-term conditions that are caused by a virus include colds and the flu (influenza). Long-term conditions that are caused by a virus include herpes, shingles, and HIV (human immunodeficiency virus) infection. A few viruses have been linked to certain cancers. What are the causes? Many types of viruses can cause illness. Viruses invade cells in your body, multiply, and cause theinfected cells to work abnormally or . When these cells , they release more of the virus. When this happens, you develop symptoms of the illness, and the virus continues to spread to other cells. If the virus takes over the function of the cell, it can cause the cell to divide and grow out ofcontrol. This happens when a virus causes cancer. Different viruses get into the body in different ways. You can get a virus by: ? Swallowing food or water that has come in contact with the virus (is contaminated). ? Breathing in droplets that have been coughed or sneezed into the air by an infected person. ? Touching a surface that has been contaminated with the virus and then touching your eyes, nose, or mouth. ? Being bitten by an insect or animal that carries the virus. ? Having sexual contact with a person who is infected with the virus. ? Being exposed to blood or fluids that contain the virus, either through an open cut or during a transfusion. If a virus enters your body, your body's defense system (immune system) will try to fight the virus. You may be at higher risk for a viral illness if your immune system is weak. What are the signs or symptoms? You may have these symptoms, depending on the type of virus and the location of the cells that it invades: ? Cold and flu viruses: ? Fever. ? Headache. ? Sore throat. ? Muscle aches. ? Stuffy nose (nasal congestion). ? Cough. ? Digestive system (gastrointestinal) viruses: ? Fever. ? Pain in the abdomen. ? Nausea. ? Diarrhea. ? Liver viruses (hepatitis): ? Loss of appetite. ? Tiredness. ? Skin or the white parts of your eyes turning yellow (jaundice). ? Brain and spinal cord viruses: ? Fever. ? Headache. ? Stiff neck. ? Nausea and vomiting. ? Confusion or sleepiness. ? Skin viruses: ? Warts. ? Itching. ? Rash. ? Sexually transmitted viruses: ? Discharge. ? Swelling. ? Redness. ? Rash. How is this diagnosed? This condition may be diagnosed based on one or more of the following: ? Symptoms. ? Medical history. ? Physical exam. ? Blood test, sample of mucus from your lungs (sputum sample), stool sample, or a swab of body fluidsor a skin sore (lesion). How is this treated? Viruses can be hard to treat because they live within cells. Antibiotic medicines do not treat viruses because these medicines do not get inside cells. Treatment for a viral illness may include: ? Resting and drinking plenty of fluids. ? Medicines to relieve symptoms. These can include [id number] medicine for pain and fever, medicines for cough or congestion, and medicines to relieve diarrhea. ? Antiviral medicines. These medicines are available only for certain types of viruses. Some viral illnesses can be prevented with vaccinations. A common example is the flu shot. Follow these instructions at home: Medicines ? Take ftfr-qex-pxavyfd and prescription medicines only as told by your health care provider. ? If you were prescribed an antiviral medicine, take it as told by your health care provider. Do not stop taking the antiviral even if you start to feel better. ? Be aware of when antibiotics are needed and when they are not needed. Antibiotics do not treat viruses. You may get an antibiotic if your health care provider thinks that you may have, or are at riskfor, a bacterial infection and you have a viral infection. ? Do not ask for an antibiotic prescription if you have been diagnosed with a viral illness. Antibiotics will not make your illness go away faster. ? Frequently taking antibiotics when they are not needed can lead to antibiotic resistance. When thisdevelops, the medicine no longer works against the bacteria that it normally fights. General instructions ? Drink enough fluids to keep your urine pale yellow. ? Rest as much as possible. ? Return to your normal activities as told by your health care provider. Ask your health care provider what activities are safe for you. ? Keep all follow-up visits as told by your health care provider. This is important. How is this prevented? To reduce your risk of viral illness: ? Wash your hands often with soap and water for at least 20 seconds. If soap and water are not available, use hand ground crew lines person. ? Avoid touching your nose, eyes, and mouth, especially if you have not washed your hands recently. ? If anyone in your household has a viral infection, clean all household surfaces that may have been in contact with the virus. Use soap and hot water. You may also use bleach that you have added waterto (diluted). ? Stay away from people who are sick with symptoms of a viral infection. ? Do not share items such as toothbrushes and water bottles with other people. ? Keep your vaccinations up to date. This includes getting a yearly flu shot. ? Eat a healthy diet and get plenty of rest. Contact a health care provider if: ? You have symptoms of a viral illness that do not go away. ? Your symptoms come back after going away. ? Your symptoms get worse. Get help right away if you have: ? Trouble breathing. ? A severe headache or a stiff neck. ? Severe vomiting or pain in your abdomen. These symptoms may represent a serious problem that is an emergency. Do not wait to see if the symptoms will go away. Get medical help right away. Call your local emergency services (911 in the [place] Do not drive yourself to the hospital. Summary ? Viruses are types of germs that can get into a person's body and cause illness. Viral illnesses canrange from mild to severe. They can affect various parts of the body. ? Viruses can be hard to treat. There are medicines to relieve symptoms, and there are some antiviralmedicines. ? If you were prescribed an antiviral medicine, take it as told by your health care provider. Do not stop taking the antiviral even if you start to feel better. ? Contact a health care provider if you have symptoms of a viral illness that do not go away. This information is not intended to replace advice given to you by your health care provider. Make sure you discuss any questions you have with your health care provider. Document Revised: 09/15/2020 Document Reviewed: 03/11/2020 Elsevier Patient Education ?? 2021 [employer] Tests Performed Medications and Immunizations Administered Given Sodium Chloride 0.9%, 1000 mL, IV Bolus Sodium Chloride 0.9%, 1000 mL, IV Bolus Lab Test Name Test Result Date/Time WBC 8.8 K/mcL 07/25/2022 11:19 EDT RBC 5.00 Million/mcL 07/25/2022 11:19 EDT Hgb 15.6 g/dL 07/25/2022 11:19 EDT Hct 45.2 % 07/25/2022 11:19 EDT MCV 90.4 fL 07/25/2022 11:19 EDT MCH 31.2 pg 07/25/2022 11:19 EDT MCHC 34.5 g/dL 07/25/2022 11:19 EDT RDW-CV 12.4 % 07/25/2022 11:19 EDT Platelets 262 K/mcL 07/25/2022 11:19 EDT MPV 9.5 fL 07/25/2022 11:19 EDT Neutro Auto 75.8 % 07/25/2022 11:19 EDT Lymph Auto 12.9 % 07/25/2022 11:19 EDT Boundary Auto 10.3 % 07/25/2022 11:19 EDT Eos, Auto 0.30 % 07/25/2022 11:19 EDT Basophil Auto 0.5 % 07/25/2022 11:19 EDT Imm Gran Auto 0.2 % 07/25/2022 11:19 EDT Neutro Absolute 6.7 K/mcL 07/25/2022 11:19 EDT Lymph Absolute 1.1 K/mcL 07/25/2022 11:19 EDT Boundary Absolute 0.9 K/mcL 07/25/2022 11:19 EDT Eos Absolute 0.0 K/mcL 07/25/2022 11:19 EDT Baso Absolute 0.0 K/mcL 07/25/2022 11:19 EDT Imm Gran Absolute 0.02 07/25/2022 11:19 EDT Sodium Level 131 mmol/L 07/25/2022 11:43 EDT Potassium Level 3.7 mmol/L 07/25/2022 11:43 EDT Chloride Level 96 mmol/L 07/25/2022 11:43 EDT CO2 22 mmol/L 07/25/2022 11:43 EDT Alk Phos 134 IntlUnit/L 07/25/2022 11:43 EDT AST 29 IntlUnit/L 07/25/2022 11:43 EDT ALT 22 IntlUnit/L 07/25/2022 11:43 EDT BUN 8 mg/dL 07/25/2022 11:43 EDT Glucose Level 95 mg/dL 07/25/2022 11:43 EDT Creatinine Level 0.71 mg/dL 07/25/2022 11:43 EDT BUN/Creat Ratio 11.3 07/25/2022 11:43 EDT Calcium Level 8.5 mg/dL 07/25/2022 11:43 EDT Protein Total 7.6 g/dL 07/25/2022 11:43 EDT Albumin Level 3.5 g/dL 07/25/2022 11:43 EDT Globulin 4.1 07/25/2022 11:43 EDT A/G Ratio 0.9 07/25/2022 11:43 EDT Bilirubin Total 0.6 mg/dL 07/25/2022 11:43 EDT Anion Gap 13.0 07/25/2022 11:43 EDT Magnesium Level 1.7 mg/dL 07/25/2022 11:43 EDT Osmolality 261 mOsm/kg 07/25/2022 11:43 EDT CRP 87.6 07/25/2022 11:43 EDT eGFR CKD-EPI 120 mL/min/1.73 m2 07/25/2022 11:43 EDT TSH 1.45 mIntlUnit/mL 07/25/2022 11:43 EDT SARS-CoV or CoV-2 (COVID-19) Ag ([facility]abil[facility]) Negative 07/25/2022 10:33 EDT Employed in healthcare? Unknown 07/25/2022 10:33 EDT Symptomatic as defined by CDC? Unknown 07/25/2022 10:33 EDT Date of onset (Lab) Unknown 07/25/2022 10:33 EDT Hospitalized due to COVID-19? Unknown 07/25/2022 10:33 EDT In ICU? Unknown 07/25/2022 10:33 EDT Group care resident? Unknown 07/25/2022 10:33 EDT status? Unknown 07/25/2022 10:33 EDT Patient/Pharmacy Customer Care Specialist Signature Patient Name:BRIDGETTE BEARD I have received this information and my questions have been answered. Patient/Pharmacy Customer Care Specialist Name: Patient/Pharmacy Customer Care Specialist Signature: Relationship to Patient: Witness Name/Signature: Date: Electronically Signed on: 07/25/2022 13:02 EDTSigned by:AB Patient Care team information Care Team Personnel Name: ZANE Fairbanks Position: Physician Member Role: Physician Duck Farmer Address: Address: [address] [place] [id number] Name: Ermelinda Benitez Position: Nurse Member Role: Registered Nurse Care Team Related Persons Name: BILLIE POLO
[2022-08-19 10:34] LABS: Albumin 2.8 g/dL (3.4-5.0); Anion Gap 22.5 mmol/L (3-11); BUN 20 mg/dL (7-18); Bilirubin, Total 0.6 mg/dL (0.2-1.0); CO2 16.5 mmol/L (21.0-32.0); CREATININE 2.9 mg/dL (0.70-1.30); Chloride 103 mmol/L (98-107); Estimated GFR 27.53 (mL/min/1.73m2); Glucose 172 mg/dL (74-106); Magnesium 3.7 mg/dL (1.8-2.4); Potassium 5.6 mmol/L (3.5-5.1); Sodium 142 mmol/L (136-145); Total Protein 6.6 g/dL (6.4-8.2); Troponin I < 50 ng/L (<or=60)
[2022-08-19 10:36] LABS: Calcium 8.2 mg/dL (8.5-10.1)
[2022-08-19 10:38] LABS: Acetaminophen < 2 ug/mL (10-30); Salicylate < 2.8 mg/dL (<2.8)
[2022-08-19 10:43] LABS: Absolute Neutrophil Count 8.36 10^3/uL (1.2-6.7); Bands % 2
[2022-08-19 10:44] LABS: Absolute Basophil Count 0.23 10^3/uL (0.0-0.2); Absolute Eosinophil Count 0.46 10^3/uL (0.0-0.7); Absolute Lymphocyte Count 2.18 10^3/uL (1.2-3.4); Absolute Monocyte Count 0.23 10^3/uL (0.1-0.8); Atypical Lymphocytes % 3; Diff Comment Manual Differential; RBC Morphology Normal
[2022-08-19 10:45] LABS: Platelet Count 148 10^3/uL (130-400)
[2022-08-19 10:53] LABS: ETHANOL BLOOD < 3.0 mg/dL (<10)
[2022-08-19 11:12] LABS: ALT 5053 U/L (16-63); AST 5764 U/L (15-37); Alkaline Phosphatase 178 U/L (46-116)
[2022-08-19] MEDS: MORPHine 4 MG/ML SYR (11:18)
[2022-08-19] MEDS: LORazepam 2 MG/ML VIAL (11:26)
--- NOTE | 2022-08-19 12:35 | NUR.NOTE ---
Nursing Note: Spoke w/ Bro from [facility] at this time. He states he will call back for f/u information.
--- NOTE | 2022-08-19 14:20 | NUR.NOTE ---
Nursing Note: F/u phonecall w/ Thuy from [facility]. Referral #[id number] per Thuy
--- NOTE | 2022-08-19 15:57 | NUR.NOTE ---
Nursing Note: Belongings bag put on stretcher and to morgue with patient per Janice Chase RNframe stripper and crusher.
== END 2022-08-19 18:59 | disposition expired ==
PROVIDERS: Emergency Provider Physician Assistant
DX: I46.9 Cardiac arrest, cause unspecified (principal)
CPT/HCPCS: 36416; 80053; 82805; 82962; 92950; 93005; 96374; 96375; 99291; 99292; 71045; 80320; 80329; 83605; 83735; 84484; 85025; 85610; 85730; 93010; J0612; J2060; J2270